=== PATIENT | male | born 1950 | race Caucasian/White ===

== ENCOUNTER 2018-03-26 12:07 | Inpatient (IN) ==
[2018-03-26] MEDS ORDERED: Tetanus/Diphtheria Toxoid Adult Vaccine Inj 0.5 ML Vial IM ONE (12:38)
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
[2018-03-26 14:17] LABS: Baso # (Auto) 0.1 th/mm3 (0.0-0.2); Baso % (Auto) 0.7 % (0.0-2.0); Eos # (Auto) 0.1 th/mm3 (0.0-0.4); Eos % (Auto) 0.3 % (0.0-4.0); Hematocrit 41.1 % (39.0-51.0); Hemoglobin 14.1 gm/dL (13.0-17.0); Lymph # (Auto) 0.9 th/mm3 (1.0-4.8); Lymph % (Auto) 5.3 % (9.0-44.0); Mean Corpuscular HGB Conc 34.4 % (32.0-36.0); Mean Corpuscular Hemoglobin 30.2 pg (27.0-34.0); Mean Corpuscular Volume 87.9 fL (80.0-100.0); Mean Platelet Volume 7.5 fL (7.0-11.0); Mono % (Auto) 5.8 % (0.0-8.0); Neut # (Auto) 14.5 th/mm3 (1.8-7.7); Neut % (Auto) 87.9 % (16.0-70.0); Platelet Count 315 th/mm3 (150-450); Red Blood Count 4.67 mil/mm3 (4.50-5.90); Red Cell Distribution Width 15.4 % (11.6-17.2); White Blood Count 16.5 th/mm3 (4.0-11.0)
[2018-03-26 14:34] LABS: Activated Partial Thrombo Time 21.5 sec (24.3-30.1); Calcium 9.2 mg/dL (8.5-10.1); Carbon Dioxide 21.6 meq/L (21.0-32.0); Potassium 4.4 meq/L (3.5-5.1); Prothrombin Time 10.4 sec (9.8-11.6)
[2018-03-26] MEDS ORDERED: Morphine Sulfate Inj 2 MG/ML Vial IV.PUSH PRN (14:46)
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
[2018-03-26] MEDS ORDERED: Pantoprazole Inj 40 MG Vial IV.PUSH SCH (16:00)
[2018-03-26] MEDS: Docusate Sodium 100 MG Capsule PO SCH ×2 (17:20→21:45)
[2018-03-26] MEDS ORDERED: Dextrose 50% in Water 50 ML Vial IV.PUSH PRN (19:27)
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
[2018-03-26] MEDS: Gabapentin 300 MG Capsule PO SCH (21:44)
[2018-03-26] MEDS: Insulin NovoLOG Aspart Correctional Sugar Inj SQ SCH (21:45)
[2018-03-27] MEDS ORDERED: Chlorhexidine Gluconate 2% 1 Pack (2 Cloths) TOPICAL PRN (04:00)
[2018-03-27] MEDS ORDERED: Chlorhexidine Gluconate 2% 1 Pack (2 Cloths) TOPICAL SCH (04:00)
[2018-03-27 06:25] LABS: Baso % (Auto) 0.4 % (0.0-2.0); Eos # (Auto) 0.2 th/mm3 (0.0-0.4); Eos % (Auto) 2.2 % (0.0-4.0); Hematocrit 41.3 % (39.0-51.0); Hemoglobin 13.9 gm/dL (13.0-17.0); Lymph # (Auto) 2.4 th/mm3 (1.0-4.8); Lymph % (Auto) 21.9 % (9.0-44.0); Mean Corpuscular HGB Conc 33.7 % (32.0-36.0); Mean Corpuscular Hemoglobin 29.9 pg (27.0-34.0); Mean Corpuscular Volume 88.6 fL (80.0-100.0); Mean Platelet Volume 7.3 fL (7.0-11.0); Mono # (Auto) 1.1 th/mm3 (0.0-0.9); Neut # (Auto) 7.2 th/mm3 (1.8-7.7); Neut % (Auto) 65.5 % (16.0-70.0); Platelet Count 323 th/mm3 (150-450); Red Blood Count 4.66 mil/mm3 (4.50-5.90); Red Cell Distribution Width 15.4 % (11.6-17.2); White Blood Count 10.9 th/mm3 (4.0-11.0)
[2018-03-27 06:55] LABS: Calcium 8.6 mg/dL (8.5-10.1); Carbon Dioxide 23.9 meq/L (21.0-32.0); Potassium 4.2 meq/L (3.5-5.1)
[2018-03-27] MEDS: Insulin NovoLOG Aspart Correctional Sugar Inj SQ SCH ×2 (07:39→11:48)
[2018-03-27 07:42] VITALS: PULSE 73; RESP 18
[2018-03-27] MEDS: Gabapentin 300 MG Capsule PO SCH ×2 (08:03→12:23)
[2018-03-27] MEDS: Docusate Sodium 100 MG Capsule PO SCH (08:04)
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
[2018-03-27] MEDS ORDERED: Fenofibrate 145 MG Tablet PO SCH (09:00)
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
[2018-03-27 12:26] VITALS: BP 123/82; TEMP 97.9; O2SAT 97
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
== END 2018-03-27 15:02 | disposition home or self-care (01) ==
LOC: NEPD 12:07 → NEDA 12:07 → N05 16:39
PROVIDERS: ADMIT Surgery; ATTEND Surgery